=== PATIENT | female | born 1955 | race American Indian/Alaskan Native ===

== ENCOUNTER 2021-09-28 08:00 | Emergency (ER) | payer SELFPAY ==
--- NOTE | 2021-09-28 10:16 | Emergency Department Report ---
<NATALY VEGA - Last Filed: 09/28/21 16:43> ED ENT HPI - General Chief complaint: Sore Throat Stated complaint: SORE THROAT Time Seen by Provider: 09/28/21 08:59 Source: patient Mode of arrival: Ambulatory Limitations: No Limitations - History of Present Illness Initial comments: 65-year-old -Chinese female that is homeless presents to the emergency room complaining of sore throat that started a few days ago. Patient reports she has a headache and is spitting mucus and her voice is changed. She admits to a little nasal congestion but no cough. She is currently not vaccinated for Covid and last Covid test was 6 months ago. She states she has been having a low-grade temperature has chills. Past medical history of hypertension currently takes no meds does not have a primary care provider and has no known drug allergies. MD complaint: sore throat, difficulty swallowing Onset/Timin -: days(s) Location: throat Severity: severe Severity scale (0 -10): 9 Quality: stabbing, sharp Consistency: constant Improves with: none Worsens with: swallowing Associated Symptoms: pain with swallowing, sore throat - Related Data Allergies Allergy/AdvReac Type Severity Reaction Status Date / Time No Known Allergies Allergy Unverified 09/28/21 09:29 ED Dental HPI - General Chief complaint: Sore Throat Stated complaint: SORE THROAT Time Seen by Provider: 09/28/21 08:59 Source: patient Mode of arrival: Ambulatory Limitations: No Limitations - Related Data Allergies Allergy/AdvReac Type Severity Reaction Status Date / Time No Known Allergies Allergy Unverified 09/28/21 09:29 ED Review of Systems Comment: All other systems reviewed and negative ED Physical Exam - General Limitations: No Limitations General appearance: alert, in no apparent distress - Head Head exam: Present: atraumatic, normocephalic - Eye Eye exam: Present: normal appearance - Expanded ENT Exam Expanded Throat exam: Positive: tonsillar erythema, tonsillomegaly, L peritonsillar mass, other (Uvula deviated to the right, muffled voice spitting her secretions) - Neck Neck exam: Present: tenderness, full ROM, lymphadenopathy (Left side left side) - Respiratory Respiratory exam: Present: normal lung sounds bilaterally. Absent: respiratory distress, accessory muscle use - Cardiovascular Cardiovascular Exam: Present: regular rate, normal rhythm. Absent: systolic murmur, diastolic murmur, rubs, gallop - GI/Abdominal GI/Abdominal exam: Present: soft, normal bowel sounds - Back Exam Back exam: Present: normal inspection - Neurological Exam Neurological exam: Present: alert, oriented X3, normal gait - Psychiatric Psychiatric exam: Present: normal affect, normal mood - Skin Skin exam: Present: warm, dry, intact, normal color. 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 TECHNIQUE: Contiguous thin cut axial images obtained through the neck following IV contrast. Sagittal and coronal reconstructions performed by the technologist. All CT scans at this location are performed using CT dose reduction for ALARA by means of automated exposure control. COMPARISON: None available. FINDINGS: There are pronounced edematous changes of the epiglottis compatible with epiglottitis with notable effacement of the vallecula, greater on the right. Additionally, there are notable edematous changes extending into the soft tissues along the base of the epiglottis measuring approximately 2.3 similar AP by 1.9 similar transverse in greatest dimensions. There is ill-defined peripheral enhancement and the findings be concerning for developing abscess in this region at. There is also moderate to marked narrowing of the airway at this level. MUCOSAL SPACE: The edematous changes also extend within the left supraglottic soft tissues with relative effacement of the left pyriform sinus. Mild edema is also noted more superiorly within the left parapharyngeal soft tissues. There also appears be relative effacement of the left laryngeal ventricle. LYMPH NODES: There are scattered cervical lymph nodes most notable along the jugular chains bilaterally which are likely reactive. The most prominent nodes along the level III region with the largest on the left measuring 1.2 cm in short axis dimension. Prominent lymph nodes are also noted within the left supra clavicular region. SALIVARY GLANDS: The visualized parotid and submandibular glands to straight fairly symmetric attenuation without calcification. THYROID GLAND: The thyroid gland is appropriate in size and contour. PARANASAL SINUSES: There is complete opacification of the maxillary and frontal sinuses and near complete opacification of the ethmoid air cells. There is moderate opacification along the inferior left sphenoid sinus. SPINE: This mild reversal the cervical lordosis with multilevel degenerative changes. VASCULAR STRUCTURES: Vascular structures are grossly normal in appearance. IMPRESSION: 1. There is notable enlargement of the epiglottis with narrowing of the airway compatible with epiglottitis. Additionally, there is notable fluid attenuation extending more anteriorly and concerning for developing abscess as described. 2. There is extensive sinus inflammatory disease. Signer Name: Stevie Guzman MD Signed: 09/28/2021 4:22 PM Workstation Name: [id number] - Medical Decision Making 65-year-old -Chinese female that is homeless presents to the emergency room complaining of sore throat that started a few days ago. Patient reports she has a headache and is spitting mucus and her voice is changed. She admits to a little nasal congestion but no cough. She is currently not vaccinated for Covid and last Covid test was 6 months ago. She states she has been having a low-grade temperature has chills. Past medical history of hypertension currently takes no meds does not have a primary care provider and has no known drug allergies. Patient is been given clindamycin [address] scan with contrast of the neck has been ordered. CT scan of neck shows she has epiglottitis with narrowing of the airway and extension of infection. Discussed case with Dr. Benson is placing patient on Zosyn Decadron 18 mg IV and he will get patient transfer out to an appropriate hospital that has ear nose and throat. The patient's care has been transferred to and accepted by Dr. Devyn Benson}. We discussed: The patient's chief complaints; labs and imaging that have been completed and those that are still pending; any treatment provided and the patient's response to treatment; any significant change in condition; the treatm ent plan prior to the transfer of care. The accepting provider will follow up on all pending labs and imaging and make any necessary changes to the current impression and/or treatment plan. The accepting physician/midlevel is now responsible for the patient's care and final disposition. ED Disposition Clinical Impression: Epiglottitis, Hypertension Disposition: 02 SHORT TERM HOSPITAL Condition: Serious Instructions: Hypertension (ED) <DEVYN BENSON - Last Filed: 09/28/21 22:27> ED Review of Systems ROS: Stated complaint: SORE THROAT Other details as noted in HPI ED Course Vital Signs 09/28/21 09/28/21 09/28/21 08:07 16:59 19:26 Temperature 98 F Pulse Rate 93 H 95 H Respiratory 16 16 Rate Blood Pressure 154/96 175/94 [Right] O2 Sat by Pulse 98 98 96 Oximetry 09/28/21 19:30 Temperature 99.0 F Pulse Rate 90 Respiratory 20 Rate Blood Pressure 176/91 [Right] O2 Sat by Pulse 98 Oximetry ED Medical Decision Making - Lab Data Result diagrams: 09/28/21 09:38 09/28/21 09:38 - Radiology Data Radiology results: report reviewed - Medical Decision Making 65-year-old female presenting with 3 days of sore throat found to have white count of 24.[address] findings consistent with epiglottitis. On my exam at 5 PM, the patient is maintaining her airway although she has slight trismus and muffled voice. She is maintaining normal oxygen saturation on room air. She has gotten clindamycin 600 mg. I have ordered broad-spectrum Zosyn, Decadron 16 mg and 1 L of IV fluids. We will transfer to facility with ENT coverage and place the patient on continuous pulse oximetry monitoring. At 5:31 PM I spoke with Dr. Brantley of ENT. The patient is excepted for transfer at [facility], [place]. The patient was updated about the diagnosis and the transfer and is in agreement with the plan of care. Critical Care Time: Yes Critical care time in (mins) excluding proc time.: 45 Critical care attestation.: If time is entered above; I have spent that time in minutes in the direct care of this critically ill patient, excluding procedure time. Critical care time was spent in the evaluation/assessment, work-up, and management of epiglottitis requiring emergent IV steroids, antibiotics, close monitoring of the patient's airway and oxygen saturation, and discussion with transfer center and consultants as well as discussion with the patient and direct care and frequent reevaluation reassessment. ED Disposition Is pt being admited?: No
[2021-09-28 10:52] LABS: Mean Corpuscular HGB Conc 31 % (30-34); Mean Corpuscular Volume 88 fl (79-97); Platelet Count 207 K/mm3 (140-440); Red Blood Count 4.65 M/mm3 (3.65-5.03); Red Cell Distribution Width 13.4 % (13.2-15.2)
[2021-09-28 10:54] LABS: Hemoglobin 12.6 gm/dl (10.1-14.3)
[2021-09-28 11:29] LABS: Alanine Aminotransferase 82 units/L (7-56); Albumin 4.3 g/dL (3.9-5); Blood Urea Nitrogen 11 mg/dL (7-17); Calcium 9.4 mg/dL (8.4-10.2); Hemolysis Index 6
[2021-09-28 11:33] LABS: BUN/Creatinine Ratio 16
[2021-09-28] MEDS ORDERED: CLINDAMYCIN 600 MG/50 mL 600 MG/50 ML BAG IV ONE (12:49)
[2021-09-28 13:27] LABS: Basophils % (Manual) 0 % (0.0-1.8); Eosinophils % (Manual) 0 % (0.0-4.3); Total Cells Counted 100
[2021-09-28 13:28] LABS: Platelet Estimate Consistent w Auto; RBC Morphology Normal
--- NOTE | 2021-09-28 16:26 | Cat Scan Report ---
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 TECHNIQUE: Contiguous thin cut axial images obtained through the neck following IV contrast. Sagittal and padilla l reconstructions performed by the technologist. All CT scans at this location are performed using CT dose reduction for ALARA by means of automated exposure control. COMPARISON: None available. FINDINGS: There are pronounced edematous changes of the epiglottis compatible with epiglottitis with notable effacement of the vallecula, greater on the right. Additionally, there are notable edematous changes extending into the soft tissues along the base of the epiglottis measuring approximately 2.3 similar AP by 1.9 similar transverse in greatest dimensions. There is ill-defined peripheral enhancem ent and the findings be concerning for developing abscess in this region at. There is also moderate t o marked narrowing of the airway at this level. MUCOSAL SPACE: The edematous changes also extend within the left supraglottic soft tissues with relat sonya effacement of the left pyriform sinus. Mild edema is also noted more superiorly within the left p arapharyngeal soft tissues. There also appears be relative effacement of the left laryngeal ventricle . LYMPH NODES: There are scattered cervical lymph nodes most notable along the jugular chains bilateral ly which are likely reactive. The most prominent nodes along the level III region with the largest on the left measuring 1.2 cm in short axis dimension. Prominent lymph nodes are also noted within the l eft supra clavicular region. SALIVARY GLANDS: The visualized parotid and submandibular glands to straight fairly symmetric attenua tion without calcification. THYROID GLAND: The thyroid gland is appropriate in size and contour. PARANASAL SINUSES: There is complete opacification of the maxillary and frontal sinuses and near comp lete opacification of the ethmoid air cells. There is moderate opacification along the inferior left sphenoid sinus. SPINE: This mild reversal the cervical lordosis with multilevel degenerative changes. VASCULAR STRUCTURES: Vascular structures are grossly normal in appearance. IMPRESSION: 1. There is notable enlargement of the epiglottis with narrowing of the airway compatible with epiglo ttitis. Additionally, there is notable fluid attenuation extending more anteriorly and concerning for developing abscess as described. 2. There is extensive sinus inflammatory disease. Signer Name: Stevie Guzman MD Signed: 09/28/2021 4:22 PM Workstation Name: [id number]
[2021-09-28] MEDS ORDERED: SODIUM CHLORIDE 0.9% 1000 ML 1,000 ML IV ONE (16:50)
[2021-09-28] MEDS ORDERED: PIPERACIL/TAZOBACTA 4.5/NS 100 4.5 GM/100 ML VIAL IV ONE (16:50)
[2021-09-28 20:28] VITALS: BP 176/91
== END 2021-09-28 19:55 | disposition short-term general hospital (02) ==
LOC: ED 08:00
DX: J05.10 Acute epiglottitis without obstruction (principal); I10 Essential (primary) hypertension
CPT/HCPCS: 70491; 80053; 85025; 96365; 96368; 96375; 99291; J1100; J2543; J7030; J7502; Q9967; Q0162